=== PATIENT | male | born 1965 | race Caucasian/White ===

== ENCOUNTER 2021-08-03 05:34 | Emergency (ER) | payer BC ==
[~2021-08-03] VITALS: Ht 188 cm; Wt 118.4 kg
[2021-08-03] MEDS ORDERED: AZITHROMYCIN 250 MG TAB ONE (07:56)
[2021-08-03] MEDS ORDERED: DEXAMETHASONE SOD PHOS INJ 4 MG/ML SDV ONE (07:56)
[2021-08-03] MEDS ORDERED: CEFTRIAXONE 1 GM VIAL ONE (07:56)
[2021-08-03] MEDS ORDERED: CEFTRIAXONE 1 GM in SODIUM CHLORIDE 0.9% 50ML 50 ML IV ONE (08:00)
[2021-08-03] MEDS ORDERED: DEXAMETHASONE SOD PHOS INJ 4 MG/ML SDV IV ONE (08:00)
[2021-08-03] MEDS ORDERED: ALBUTEROL2.5 MG/3 M IH (08:15)
[2021-08-03] MEDS ORDERED: CEFDINIR300 MG PO (08:16)
[2021-08-03] MEDS ORDERED: DEXAMETHASONE6 MG PO (08:16)
[2021-08-03] MEDS ORDERED: ZITHROMAX250 MG PO (08:19)
[2021-08-03] MEDS ORDERED: GUAIFEN-CODEINE5 ML PO (08:21)
[2021-08-03 08:30] VITALS: BP 131/90
[2021-08-03] MEDS ORDERED: AZITHROMYCIN 250 MG TAB PO SCH (09:00)
[2021-08-03] MEDS ORDERED: VENTOLIN HFA18 GM INH (10:29)
== END 2021-08-03 08:33 | disposition home or self-care (01) ==
LOC: FSED 06:04
DX: R05.9 Cough, unspecified (principal); J18.9 Pneumonia, unspecified organism; J98.01 Acute bronchospasm; R06.02 Shortness of breath; D72.829 Elevated white blood cell count, unspecified; R94.31 Abnormal electrocardiogram [ECG] [EKG]
CPT/HCPCS: 71046; 80053; 82553; 83880; 84484; 85025; 87400; 93005; 99284; J0696; J1100

== ENCOUNTER 2021-10-18 13:45 | Inpatient (IN) | payer BC ==
[~2021-10-18] VITALS: Ht 188 cm; Wt 119.7 kg
[~2021-10-18 13:45] MED LIST: ALBUTEROL2.5 MG/3 M IH; CEFDINIR300 MG PO; DEXAMETHASONE6 MG PO; GUAIFEN-CODEINE5 ML PO; VENTOLIN HFA18 GM INH; ZITHROMAX250 MG PO
[2021-10-18] MEDS ORDERED: SODIUM CHLORIDE 0.9% 250ML 250 ML ONE (14:29)
[2021-10-18] MEDS ORDERED: CEFTRIAXONE 1 GM VIAL ONE (14:29)
[2021-10-18] MEDS ORDERED: SODIUM CHLORIDE 0.9% 1000ML 1,000 ML IV SCH (14:30)
[2021-10-18] MEDS ORDERED: SODIUM CHLORIDE 0.9% 1000ML 1,000 ML ONE (14:31)
[2021-10-18] MEDS ORDERED: ACETAMINOPHEN 325 MG TAB PO PRN (14:45)
[2021-10-18] MEDS ORDERED: ACETAMINOPHEN 325 MG TAB ONE (14:46)
[2021-10-18 15:00] LABS: INR 0.95; PROTHROMBIN TIME 13.6 seconds (11.9-14.5)
[2021-10-18 15:01] LABS: PARTIAL THROMBOPLASTIN TIME 32.6 seconds (23.8-35.5)
[2021-10-18] MEDS ORDERED: SODIUM CHLORIDE FLUSH 10 ML SYR INJ PRN (15:30)
[2021-10-18] MEDS ORDERED: IOPAMIDOL 370 MG/ML 100 ML INFUS..BTL INJ ONE (16:42)
[2021-10-18] MEDS ORDERED: METHYLPREDNISOLONE SOD SUCC 125 MG/2ML VIAL IV ONE (17:00)
[2021-10-18 17:15] VITALS: BP 131/92
[2021-10-18] MEDS: ALBUTEROL/IPRATROPIUM 3 ML NEB NEB SCH (19:20)
[2021-10-18 20:59] VITALS: BP 117/84
[2021-10-19] MEDS: ALBUTEROL/IPRATROPIUM 3 ML NEB NEB SCH ×3 (01:10→13:00)
[2021-10-19 02:37] VITALS: BP 111/72
[2021-10-19 05:51] VITALS: BP 107/86
[2021-10-19 07:12] LABS: BASOPHILS % 0.1 % (0.0-1.0); HEMOGLOBIN 17.8 g/dL (14.0-18.0); LYMPHOCYTES # (AUTO) 1.2 (1.0-3.2); LYMPHOCYTES % 13.3 % (18.0-39.1); MEAN CORPUSCULAR HEMOGLOBIN 31.2 pg (28-32); MEAN CORPUSCULAR VOLUME 94.7 fL (81-99); MONOCYTES # (AUTO) 0.4 (0.2-0.8); MONOCYTES % 4.8 % (4.4-11.3); NEUTROPHILS # (AUTO) 7.4 (2.1-6.9); NEUTROPHILS % 81.4 % (38.7-80.0); PLATELET COUNT 175 x10e3/uL (140-360)
[2021-10-19 07:42] LABS: ALBUMIN 3.4 g/dL (3.5-5.0); ANION GAP 13.5 mmol/L (8-16); CALCIUM 8.4 mg/dL (8.4-10.2); CREATININE, SERUM 0.71 mg/dL (0.72-1.25); POTASSIUM 4.5 mmol/L (3.5-5.1)
[2021-10-19 08:08] VITALS: BP 140/84
[2021-10-19] MEDS ORDERED: SODIUM CHLORIDE 0.9% 250ML 250 ML ONE (08:09)
[2021-10-19 08:41] VITALS: BP 140/84
[2021-10-19] MEDS ORDERED: METHYLPREDNISOLONE SOD SUCC 40 MG/ML VIAL 1ML IV SCH (09:00)
[2021-10-19] MEDS ORDERED: AZITHROMYCIN 250 MG TAB PO SCH (10:00)
[2021-10-19] MEDS ORDERED: TIOTROPIUM 18 MCG INH POWDER INH SCH (11:00)
[2021-10-19 11:36] VITALS: BP 132/87
[2021-10-19] MEDS ORDERED: SPIRIVA18 MCG INH (12:15)
[2021-10-19] MEDS ORDERED: PROAIR HFA INH8.5 GM INH (12:17)
== END 2021-10-19 14:12 | disposition home or self-care (01) | DRG 190 ==
LOC: FSED 14:00 → ERHOLD 15:35 → MED/SURG3 17:15
PROVIDERS: ADMIT Internal Medicine; ATTEND Internal Medicine
DX: J44.0 Chronic obstructive pulmonary disease with (acute) lower respiratory infection (principal); J18.9 Pneumonia, unspecified organism; J20.9 Acute bronchitis, unspecified; J44.1 Chronic obstructive pulmonary disease with (acute) exacerbation; R09.02 Hypoxemia; F17.210 Nicotine dependence, cigarettes, uncomplicated; R59.0 Localized enlarged lymph nodes; Z20.822 Contact with and (suspected) exposure to COVID-19
CPT/HCPCS: 36415; 71046; 71260; 80053; 83605; 85025; 85610; 85730; 87040; 94640; 94799; 99284; J0456; J0696; J2920; J2930; J7030; J7050; Q9967

== ENCOUNTER 2021-12-03 08:16 | Inpatient (IN) | payer BC ==
[~2021-12-03] VITALS: Ht 188 cm; Wt 114.8 kg
[~2021-12-03 08:16] MED LIST changes: +PROAIR HFA INH8.5 GM INH; +SPIRIVA18 MCG INH
[2021-12-03] MEDS ORDERED: LEVALBUTEROL HCL SOLN NEBU 1.25 MG/3 ML NEB INH ONE (09:00)
[2021-12-03] MEDS ORDERED: SODIUM CHLORIDE 0.9% 500ML 500 ML IV ONE (09:00)
[2021-12-03] MEDS ORDERED: IPRATROPIUM BROMIDE 0.02% 2.5 ML NEB NEB ONE (09:00)
[2021-12-03 09:11] LABS: BASOPHILS # (AUTO) 0.1 (0.0-0.1); BASOPHILS % 0.5 % (0.0-1.0); EOSINOPHILS # (AUTO) 0.3 (0.0-0.4); EOSINOPHILS % 2.3 % (0.0-6.0); HEMOGLOBIN 17.6 g/dL (14.0-18.0); LYMPHOCYTES # (AUTO) 1.3 (1.0-3.2); LYMPHOCYTES % 10.9 % (18.0-39.1); MEAN CORPUSCULAR HEMOGLOBIN 31.4 pg (28-32); MEAN CORPUSCULAR HGB CONC 34.5 g/dL (31-35); MEAN CORPUSCULAR VOLUME 91.1 fL (81-99); MONOCYTES # (AUTO) 1.1 (0.2-0.8); MONOCYTES % 9.6 % (4.4-11.3); NEUTROPHILS # (AUTO) 8.8 (2.1-6.9); NEUTROPHILS % 76.4 % (38.7-80.0); PLATELET COUNT 211 x10e3/uL (140-360); RED CELL DISTRIBUTION WIDTH 13.2 % (11.7-14.4)
[2021-12-03 09:25] LABS: INR 0.92; PROTHROMBIN TIME 13.2 seconds (11.9-14.5)
[2021-12-03 09:26] LABS: PARTIAL THROMBOPLASTIN TIME 32.6 seconds (23.8-35.5)
[2021-12-03 09:37] LABS: ALANINE AMINOTRANSFERASE 22 IU/L (0-55); ALBUMIN 3.6 g/dL (3.5-5.0); ALBUMIN/GLOBULIN RATIO 0.9 (0.8-2.0); ALKALINE PHOSPHATASE 66 IU/L (40-150); ANION GAP 13.9 mmol/L (8-16); BLOOD UREA NITROGEN 10 mg/dL (7-26); BUN/CREATININE RATIO 13 (6-25); CALCIUM 8.6 mg/dL (8.4-10.2); CARBON DIOXIDE 23 mmol/L (22-29); CHLORIDE 101 mmol/L (98-107); CREATINE KINASE 70 IU/L (30-200); CREATININE, SERUM 0.75 mg/dL (0.72-1.25); GLUCOSE 120 mg/dL (74-118); POTASSIUM 3.9 mmol/L (3.5-5.1); SODIUM 134 mmol/L (136-145)
[2021-12-03] MEDS ORDERED: SODIUM CHLORIDE 0.9% 250ML 250 ML ONE (09:58)
[2021-12-03] MEDS ORDERED: ACETAMINOPHEN 325 MG TAB PO ONE (10:30)
[2021-12-03] MEDS ORDERED: ALBUTEROL SULFATE HFA 8GM INHALATION AEROSOL INH PRN (10:30)
[2021-12-03] MEDS ORDERED: SODIUM CHLORIDE 0.9% 1000ML 1,000 ML IV SCH (10:30)
[2021-12-03] MEDS ORDERED: ENOXAPARIN SOD INJ 40 MG/0.4 ML SYR SC SCH (11:30)
[2021-12-03] MEDS: DEXAMETHASONE SOD PHOS 10 MG/1 ML VIAL IV SCH (11:49)
[2021-12-03] MEDS ORDERED: IOPAMIDOL 370 MG/ML 100 ML INFUS..BTL INJ ONE (11:52)
[2021-12-03] MEDS ORDERED: GUAIFENESIN/CODEINE 5 ML LIQD PO PRN (14:00)
[2021-12-03 14:10] VITALS: BP 131/75
[2021-12-03 14:12] VITALS: BP 131/75
[2021-12-03 14:18] VITALS: BP 131/75
[2021-12-03] MEDS: NIRMATRELVIR/RITONAVIR 1 EACH TABLET PO SCH ×2 (14:35→21:15)
[2021-12-03 15:16] LABS: CREATINE KINASE 67 IU/L (30-200)
[2021-12-03 15:50] VITALS: BP 129/72
[2021-12-03] MEDS: ASCORBIC ACID 500 MG TAB PO SCH (17:24)
[2021-12-03 20:00] VITALS: BP 147/85
[2021-12-04] VITALS (7 sets, daily range): BP systolic 112–133; BP diastolic 56–85
[2021-12-04] MEDS ORDERED: TIOTROPIUM 18 MCG INH POWDER INH SCH (06:00)
[2021-12-04 06:15] LABS: BASOPHILS % 0.1 % (0.0-1.0); HEMATOCRIT 48.4 % (38.2-49.6); HEMOGLOBIN 16.7 g/dL (14.0-18.0); LYMPHOCYTES # (AUTO) 1.2 (1.0-3.2); LYMPHOCYTES % 12.1 % (18.0-39.1); MEAN CORPUSCULAR HEMOGLOBIN 31.3 pg (28-32); MEAN CORPUSCULAR HGB CONC 34.5 g/dL (31-35); MEAN CORPUSCULAR VOLUME 90.8 fL (81-99); MONOCYTES # (AUTO) 0.7 (0.2-0.8); MONOCYTES % 6.8 % (4.4-11.3); NEUTROPHILS # (AUTO) 7.9 (2.1-6.9); NEUTROPHILS % 80.6 % (38.7-80.0); PLATELET COUNT 194 x10e3/uL (140-360); RED BLOOD COUNT 5.33 x10e6/uL (4.3-5.7); RED CELL DISTRIBUTION WIDTH 12.8 % (11.7-14.4)
[2021-12-04 06:45] LABS: ALBUMIN 3.6 g/dL (3.5-5.0); ALBUMIN/GLOBULIN RATIO 0.9 (0.8-2.0); ANION GAP 16.7 mmol/L (8-16); CALCIUM 8.8 mg/dL (8.4-10.2); CREATININE, SERUM 0.7 mg/dL (0.72-1.25); POTASSIUM 4.7 mmol/L (3.5-5.1)
[2021-12-04 08:25] LABS: CREATINE KINASE MB 4.5 ng/mL (0-5.0)
[2021-12-04] MEDS: DEXAMETHASONE SOD PHOS 10 MG/1 ML VIAL IV SCH (08:57)
[2021-12-04] MEDS: ZINC SULFATE 50 MG CAP PO SCH (08:57)
[2021-12-04] MEDS: ASCORBIC ACID 500 MG TAB PO SCH ×2 (08:57→09:00)
[2021-12-04] MEDS: ENOXAPARIN SOD INJ 40 MG/0.4 ML SYR SC SCH (08:58)
[2021-12-04] MEDS: NIRMATRELVIR/RITONAVIR 1 EACH TABLET PO SCH ×2 (08:59→20:59)
[2021-12-05] VITALS: BP 105/57
[2021-12-05 04:00] VITALS: BP 105/67
[2021-12-05 08:00] VITALS: BP 110/63
[2021-12-05 08:18] VITALS: BP 105/67
[2021-12-05] MEDS: NIRMATRELVIR/RITONAVIR 1 EACH TABLET PO SCH (09:00)
[2021-12-05] MEDS: ASCORBIC ACID 500 MG TAB PO SCH (09:00)
[2021-12-05] MEDS: ZINC SULFATE 50 MG CAP PO SCH (09:13)
[2021-12-05] MEDS: DEXAMETHASONE SOD PHOS 10 MG/1 ML VIAL IV SCH (09:13)
[2021-12-05] MEDS: ENOXAPARIN SOD INJ 40 MG/0.4 ML SYR SC SCH (09:13)
== END 2021-12-05 12:25 | disposition home or self-care (01) | DRG 177 ==
LOC: ER 08:28 → ERHOLD 10:30 → MED/SURG2 13:26
PROVIDERS: ADMIT Family Medicine; ATTEND Family Medicine
PROC: XW0DXF5 Introduction of Other New Technology Therapeutic Substance into Mouth and Pharynx, External Approach, New Technology Group 5 (ICD-10-PCS; principal; 2021-12-03)
PROC: 3E0333Z Introduction of Anti-inflammatory into Peripheral Vein, Percutaneous Approach (ICD-10-PCS; 2021-12-03)
PROC: 5A0935A Assistance with Respiratory Ventilation, Less than 24 Consecutive Hours, High Flow/Velocity Cannula (ICD-10-PCS; 2021-12-03)
DX: U07.1 COVID-19 (principal); J12.82 Pneumonia due to coronavirus disease 2019; J96.01 Acute respiratory failure with hypoxia; J44.0 Chronic obstructive pulmonary disease with (acute) lower respiratory infection; F17.200 Nicotine dependence, unspecified, uncomplicated; Z99.81 Dependence on supplemental oxygen; R59.0 Localized enlarged lymph nodes
CPT/HCPCS: 36415; 71045; 71260; 80053; 82550; 82553; 83605; 83735; 83880; 84484; 85025; 85610; 85730; 87040; 93005; 94640; 94760; 94799; 99285; J0456; J0696; J1100; J1650; J7030; J7040; J7050; Q9967

== ENCOUNTER → 2022-01-05 | Outpatient (CLI) | payer BC | LOC: DX 09:07 | PROVIDERS: ATTEND Internal Medicine Pulmonary Disease | DX: R13.12 Dysphagia, oropharyngeal phase (principal); R05.9 Cough, unspecified; Z20.822 Contact with and (suspected) exposure to COVID-19 | CPT/HCPCS: 0223U; 36415; 74230; 92526; 92611 ==

== ENCOUNTER 2022-03-24 06:16 | Emergency (ER) | payer BC ==
[~2022-03-24] VITALS: Ht 188 cm; Wt 117.9 kg
[2022-03-24] MEDS ORDERED: ALBUTEROL/IPRATROPIUM 3 ML NEB NEB ONE ×2 (07:30)
[2022-03-24] MEDS ORDERED: METHYLPREDNISOLONE SOD SUCC 125 MG/2ML VIAL IV ONE ×2 (07:30)
[2022-03-24] MEDS ORDERED: PREDNISONE50 MG PO (07:45)
[2022-03-24] MEDS ORDERED: CEFTRIAXONE 1 GM VIAL ONE (07:45)
[2022-03-24] MEDS ORDERED: VENTOLIN HFA18 GM INH (07:45)
[2022-03-24] MEDS ORDERED: CEPHALEXIN500 MG PO (07:45)
[2022-03-24] MEDS ORDERED: AZITHROMYCIN250 MG PO (07:45)
== END 2022-03-24 08:03 | disposition home or self-care (01) ==
LOC: FSED 06:21
DX: J44.9 Chronic obstructive pulmonary disease, unspecified (principal); Z20.822 Contact with and (suspected) exposure to COVID-19; Z79.899 Other long term (current) drug therapy; Z87.891 Personal history of nicotine dependence
CPT/HCPCS: 71046; 80053; 81003; 82553; 84484; 85025; 85379; 93005; 99284; J0696; J2930; U0002

== ENCOUNTER 2022-06-16 05:45 | Emergency (ER) | payer BC ==
[~2022-06-16] VITALS: Ht 188 cm; Wt 117.9 kg
[~2022-06-16 05:45] MED LIST changes: +AZITHROMYCIN250 MG PO; +CEPHALEXIN500 MG PO; +PREDNISONE50 MG PO
[2022-06-16] MEDS ORDERED: PAXLOVID 300-11 EACH PO (07:08)
== END 2022-06-16 07:38 | disposition home or self-care (01) ==
LOC: ER 06:10
DX: R05.9 Cough, unspecified (principal); U07.1 COVID-19; J44.9 Chronic obstructive pulmonary disease, unspecified
CPT/HCPCS: 71046; 87400; 99283; U0002

== ENCOUNTER 2023-06-18 12:37 | Emergency (ER) | payer BC, OTHER ==
[~2023-06-18] VITALS: Ht 188 cm; Wt 117.9 kg
[~2023-06-18 12:37] MED LIST changes: +PAXLOVID 300-11 EACH PO
[2023-06-18] MEDS ORDERED: SODIUM CHLORIDE 0.9% 1000ML 1,000 ML IV STA (13:10)
[2023-06-18] MEDS ORDERED: ALBUTEROL/IPRATROPIUM 3 ML NEB NEB ONE (13:15)
[2023-06-18] MEDS ORDERED: METHYLPREDNISOLONE SOD SUCC 125 MG/2ML VIAL IV ONE (13:15)
[2023-06-18] MEDS ORDERED: SODIUM CHLORIDE 0.9% 1000ML 1,000 ML ONE (13:23)
[2023-06-18] MEDS ORDERED: ALBUTEROL/IPRATROPIUM 3 ML NEB ONE (13:23)
[2023-06-18] MEDS ORDERED: METHYLPREDNISOLONE SOD SUCC 125 MG/2ML VIAL ONE (13:23)
[2023-06-18 13:36] VITALS: PULSE 89; RESP 24
[2023-06-18] MEDS ORDERED: DIPHENHYDRAMINE25 MG PO (14:37)
[2023-06-18] MEDS ORDERED: BROMFED DM COU118 ML PO (14:37)
[2023-06-18] MEDS ORDERED: PREDNISONE50 MG PO (14:37)
[2023-06-18] MEDS ORDERED: NICOTINE PATCH1 EAC1 TOP (14:37)
[2023-06-18] MEDS ORDERED: VENTOLIN HFA18 GM INH (14:37)
[2023-06-18] MEDS ORDERED: IPRAT-ALBUT 0.5-3 ML NEB (14:37)
[2023-06-18] MEDS ORDERED: LEVOFLOXACIN250 MG PO (14:37)
[2023-06-18] MEDS ORDERED: SYMBICORT 80-10.2 GM INH (14:37)
[2023-06-18 14:45] VITALS: O2SAT 95
[2023-06-18 15:03] VITALS: BP 124/81
== END 2023-06-18 15:22 | disposition home or self-care (01) ==
LOC: FSED 12:42
DX: R06.02 Shortness of breath (principal); J20.9 Acute bronchitis, unspecified; R09.02 Hypoxemia; J44.9 Chronic obstructive pulmonary disease, unspecified; Z11.52 Encounter for screening for COVID-19
CPT/HCPCS: 0223U; 71046; 80053; 82553; 83518; 83880; 84484; 85025; 87400; 99283; J2930; J7030

== ENCOUNTER 2024-06-27 09:48 | Emergency (ER) | payer OTHER ==
[~2024-06-27] VITALS: Ht 188 cm; Wt 117.9 kg
[~2024-06-27 09:48] MED LIST changes: +BROMFED DM COU118 ML PO; +DIPHENHYDRAMINE25 MG PO; +IPRAT-ALBUT 0.5-3 ML NEB; +LEVOFLOXACIN250 MG PO; +NICOTINE PATCH1 EAC1 TOP; +SYMBICORT 80-10.2 GM INH
[2024-06-27 10:00] VITALS: TEMP 98.7
[2024-06-27] MEDS ORDERED: SODIUM CHLORIDE FLUSH 10 ML SYR IV PRN (10:30)
[2024-06-27 10:59] LABS: BASOPHILS % 0.3 % (0.0-1.0); EOSINOPHILS % 0.2 % (0.0-6.0); HEMATOCRIT 53.6 % (38.2-49.6); HEMOGLOBIN 19.1 g/dL (14.0-18.0); LYMPHOCYTES % 16.6 % (18.0-39.1); MEAN CORPUSCULAR HEMOGLOBIN 32.4 pg (28-32); MEAN CORPUSCULAR HGB CONC 35.6 g/dL (31-35); MONOCYTES # (AUTO) 0.5 (0.2-0.8); MONOCYTES % 8.7 % (4.4-11.3); NEUTROPHILS # (AUTO) 4.4 (2.1-6.9); NEUTROPHILS % 73.9 % (38.7-80.0); PLATELET COUNT 134 x10e3/uL (140-360); RED BLOOD COUNT 5.89 x10e6/uL (4.3-5.7); RED CELL DISTRIBUTION WIDTH 14.3 % (11.7-14.4); WHITE BLOOD COUNT 5.96 x10e3/uL (4.8-10.8)
[2024-06-27 11:16] LABS: ALBUMIN 3.7 g/dL (3.5-5.0); ALBUMIN/GLOBULIN RATIO 1.2 (0.8-2.0); ANION GAP 14.8 mmol/L (8-16); BILIRUBIN,TOTAL 0.6 mg/dL (0.2-1.2); CALCIUM 8.6 mg/dL (8.4-10.2); CREATININE, SERUM 0.74 mg/dL (0.72-1.25); POTASSIUM 3.8 mmol/L (3.5-5.1); TOTAL PROTEIN 6.8 g/dL (6.5-8.1)
[2024-06-27 11:22] LABS: TROPONIN I 0.049 ng/mL (0-0.300)
[2024-06-27 11:30] VITALS: PULSE 101; RESP 26
[2024-06-27] MEDS: ALBUTEROL/IPRATROPIUM 3 ML NEB NEB ONE (11:30)
[2024-06-27] MEDS ORDERED: ALBUTEROL/IPRATROPIUM 3 ML NEB NEB ONE (11:45)
[2024-06-27 11:46] LABS: INFLUENZA A AG NEGATIVE (NEGATIVE); INFLUENZA B AG NEGATIVE (NEGATIVE)
[2024-06-27 11:47] LABS: CORONAVIRUS COVID-19 AG NEGATIVE (NEGATIVE)
[2024-06-27] MEDS: METHYLPREDNISOLONE SOD SUCC 125 MG/2ML VIAL IV ONE (11:50)
[2024-06-27] MEDS ORDERED: VENTOLIN HFA18 GM INH (11:58)
[2024-06-27] MEDS ORDERED: PREDNISONE50 MG PO (11:58)
[2024-06-27 12:07] VITALS: PULSE 81; RESP 20; O2SAT 99
== END 2024-06-27 12:09 | disposition home or self-care (01) ==
LOC: ER 10:30
DX: R06.00 Dyspnea, unspecified (principal); J84.10 Pulmonary fibrosis, unspecified; J44.9 Chronic obstructive pulmonary disease, unspecified; Z11.52 Encounter for screening for COVID-19; R94.31 Abnormal electrocardiogram [ECG] [EKG]
CPT/HCPCS: 36415; 71046; 80053; 83880; 84484; 85025; 87428; 93005; 99284; J2919